=== PATIENT | female | born 1985 | race African-American/Black ===

== ENCOUNTER 2024-05-13 15:41 | Emergency (ER) | payer OTHER, MEDICAID ==
[~2024-05-13] VITALS: Ht 167.6 cm; Wt 72.6 kg
[2024-05-13] MEDS ORDERED: LIDO30AD10 TP (17:28)
[2024-05-13] MEDS ORDERED: IBUP-1955 PO (17:28)
[2024-05-13] MEDS ORDERED: CYCL5TAB PO (17:28)
[2024-05-13 17:39] VITALS: BP 130/78; TEMP 98.5; O2SAT 99
== END 2024-05-13 17:40 | disposition home or self-care (01) ==
LOC: ER 15:52
DX: S16.1XXA Strain of muscle, fascia and tendon at neck level, initial encounter (principal); R51.9 Headache, unspecified; M54.6 Pain in thoracic spine; Z88.0 Allergy status to penicillin; V49.49XA Driver injured in collision with other motor vehicles in traffic accident, initial encounter; Y93.89 Activity, other specified; Y92.488 Other paved roadways as the place of occurrence of the external cause; Y99.8 Other external cause status